=== PATIENT | male | born 1980 | race African-American/Black ===

== ENCOUNTER → 2017-01-21 | Outpatient (CLI) | payer BC ==
[~2017-01-21] MED LIST: MUCINEX D ER T1 EAC1 PO; NO MEDICATIONS; ZITHROMAX PO
--- NOTE | ~2017-01-21 | CR229 ---
[facility] A Service of [facility] & [facility] RADIOLOGY TEXT RESULTS PATIENT: LORENZO IBANEZ II LOCATION: [facility] : 78 UNIT #: [id number] AGE: [address]: Carolina English MD SEX: M ORDER DR: [id number] [facility] [address] [place], [place] [address] [id number] O MR#: [id number] Acc #: [id number] NAME: LORENZO IBANEZ : 1980 SEX: M STUDY DATE/TIME: 01/21/2017 17:33 UNIT: [facility] ROOM: STUDY DESCRIPTION: CR Shoulder Min 2 View Lt Attending Physician: Carolina English M.D. Referring Physician: Carolina English M.D. Ordering Physician: Carolina English M.D. Primary Care Physician: Carolina English M.D. MEDICAL IMAGING REPORT This report is preliminary unless electronic signature is present EXAM Left shoulder 4 views 01/21/2017. HISTORY Left shoulder pain with left upper extremity numbness and tingling for 6 months. No known injury. FINDINGS AP view with internal and external rotation of the shoulder girdle shows satisfactory relationship of the humeral head and glenoid fossa. The joint space is normal. There is no identifiable fracture or dislocation or bony destructive process about the shoulder girdle anatomy. The acromioclavicular joint is normal. There is no radiopaque foreign body in the region. IMPRESSION Normal shoulder. Dictated by... Dany Avalos M.D. THIS IS AN ELECTRONICALLY VERIFIED REPORT Dany Avalos M.D. at 01/23/2017 7:27 AM RENAY/cheryl TD: 01/22/2017 11:35 JOB #: [id number] MEDICAL IMAGING REPORT Page 1 of 1 COPY
--- NOTE | ~2017-01-21 | CR58 ---
[facility] A Service of [facility] & [facility] RADIOLOGY TEXT RESULTS PATIENT: LORENZO IBANEZ II LOCATION: [facility] : 78 UNIT #: [id number] AGE: [address]: Carolina English MD SEX: M ORDER DR: [id number] [facility] [address] [place], [place] [address] [id number] O MR#: [id number] Acc #: [id number] NAME: LORENZO IBANEZ : 1980 SEX: M STUDY DATE/TIME: 01/21/2017 17:27 UNIT: [facility] ROOM: STUDY DESCRIPTION: CR Cervical Spine 2 or 3 Views Attending Physician: Carolina English M.D. Referring Physician: Carolina English M.D. Ordering Physician: Carolina English M.D. Primary Care Physician: Carolina English M.D. MEDICAL IMAGING REPORT This report is preliminary unless electronic signature is present EXAM Cervical spine 6 views 01/21/2017. HISTORY Neck pain and left shoulder pain with bilateral upper extremity numbness and tingling for 6 months. No known injury. FINDINGS Six views of the cervical spine show satisfactory preservation of the cervical lordosis. The cervical soft tissues are normal. All anterior and posterior elements in the cervical area are anatomically normal without identifiable fracture, dislocation, malignant lytic or sclerotic change, or arthritis. There is no congenital defect apparent. IMPRESSION Normal cervical spine. Dictated by... Dany Avalos M.D. THIS IS AN ELECTRONICALLY VERIFIED REPORT Dany Avalos M.D. at 01/23/2017 7:27 AM KRT/edenilson TD: 01/22/2017 11:08 JOB #: [id number] MEDICAL IMAGING REPORT Page 1 of 1 COPY
== END | disposition home or self-care (01) ==
LOC: CRAD 16:32
DX: M25.512 Pain in left shoulder (principal); M54.12 Radiculopathy, cervical region
CPT/HCPCS: 72040; 73030